=== PATIENT | male | born 1995 | race African-American/Black ===

== ENCOUNTER 2017-09-30 13:28 | Emergency (ER) | payer MEDICAID ==
[~2017-09-30] VITALS: Ht 182.9 cm; Wt 79.0 kg
[~2017-09-30 13:28] MED LIST: HYDR-3580 PO; Z.0.NO CURRENT MEDS
[2017-09-30 13:31] VITALS: BP 141/72; PULSE 93; RESP 16; TEMP 99; O2SAT 100
[2017-09-30] MEDS ORDERED: LIDOCAINE VISCOUS 2% SOLN 15 ML UDC SWISH-SWAL STA (14:12)
[2017-09-30] MEDS ORDERED: AMOXICILLIN (TRIHYDRATE) 500 MG CAP PO ONE (14:15)
[2017-09-30] MEDS ORDERED: ALUMINUM/MAGNESIUM/SIMETH 30 ML CUP PO ONE (14:15)
[2017-09-30] MEDS ORDERED: MAGICPED SWISH-SWAL (14:16)
[2017-09-30] MEDS ORDERED: AMOX500T PO (14:16)
--- NOTE | 2017-09-30 14:16 | PD ---
HPI Chief Complaint: ENT Complaint Time Seen by Provider: 14:12 Travel History International Travel<30 days: No Contact w/Intl Traveler<30days: No Traveled to known affect area: No History of Present Illness HPI 22-year-old male presents to emergency department complaining of a sore throat for 3-4 days. Patient says he had a friend come from [place] but the same issues and believes that she may have given this problem. Patient states that he thinks it has strep throat. Says that his pain is moderate to severe and is having trouble swallowing his pain. Patient denies drooling or hot potato voice. Patient denies cough or rhinorrhea. States he has anterior cervical tenderness with enlarged lymph nodes. Denies headache. States he has felt feverish for the last couple of days. Denies chronic medical issues or chronic medication use. PFSH Past Medical History ADD: Yes ADHD: Yes Cardiovascular Problems: Yes (HEART MURMUR PER MOTHER) Diminished Hearing: No Immunizations Current: Yes Social History Alcohol Use: No Tobacco Use: No Substance Use: No Allergies-Medications (Allergen,Severity, Reaction): Coded Allergies: No Known Allergies (Verified Adverse Reaction, Unknown, 09/30/17) Reported Meds & Prescriptions Reported Meds & Active Scripts Active Amoxicillin 500 Mg Tab 500 Mg PO BID 10 Days Magic Mouthwash Pediatric/Adult Liq (Lidocaine/Diphenhydr/Alum/Mg/Simeth) 60 Ml Susp 5 Ml SWISH-SWAL ACHS Each 5mL contains: Diphenydramine 4.5mg, Viscous Lidocaine 2% 10mg, Maalox Advanced Regular Strength 2.7ml Review of Systems Except as stated in HPI: all other systems reviewed are Neg Physical Exam Narrative GENERAL: Well-nourished, well-developed patient. SKIN: Focused skin assessment warm/dry. HEAD: Normocephalic. EYES: No scleral icterus. No injection or drainage. NECK: Supple, trachea midline. No JVD. Bilateral anterior cervical lymphadenopathy THROAT: Pharyngeal injection, exudates, and tonsillar hypertrophy. Airway is patent. CARDIOVASCULAR: Regular rate and rhythm without murmurs, gallops, or rubs. RESPIRATORY: Breath sounds equal bilaterally. No accessory muscle use. MUSCULOSKELETAL: No cyanosis, or edema. BACK: Nontender without obvious deformity. No CVA tenderness. Data Data Last Documented VS Vital Signs Date Time Temp Pulse Resp B/P (MAP) Pulse Ox O2 Delivery O2 Flow Rate FiO2 09/30/17 13:31 99.0 93 16 141/72 (95) 100 Orders Orders Amoxicillin (Trimox) (09/30/17 14:15) Lidocaine 2% Viscous (Xylocaine 2% Visco (09/30/17 14:12) Al-Mag Hy-Si 40-40-4 Mg/Ml Liq (Mag-Al P (09/30/17 14:15) Ed Discharge Order (09/30/17 14:16) MDM Medical Decision Making Medical Screen Exam Complete: Yes Emergency Medical Condition: Yes Differential Diagnosis Strep pharyngitis, viral pharyngitis, allergic pharyngitis Narrative Course 22-year-old male presents to emergency department complaining of a sore throat for 3-4 days. Patient says he had a friend come from [place] but the same issues and believes that she may have given this problem. Patient states that he thinks it has strep throat. Says that his pain is moderate to severe and is having trouble swallowing his pain. Patient denies drooling or hot potato voice. Patient denies cough or rhinorrhea. States he has anterior cervical tenderness with enlarged lymph nodes. Denies headache. States he has felt feverish for the last couple of days. Denies chronic medical issues or chronic medication use. Vital signs stable. Centor criteria met for treatment of strep pharyngitis. Patient was treated with amoxicillin and Maalox with lidocaine for symptom relief. Patient advised to take amoxicillin as prescribed. Follow-up with his primary care physician within 2 days. Follow-up emergency department for worsening or persistent symptoms. Diagnosis Primary Impression: Strep pharyngitis Referrals: Primary Care Physician Additional Instructions: Follow up with your primary care physician within 2-3 days. If your symptoms persist or worsen, return to the emergency department. Continue salt water gargles Take medication as prescribed. Scripts Amoxicillin (Amoxicillin) 500 Mg Tab 500 MG PO BID for Infection for 10 Days, #20 TAB 0 Refills Prov: Ashleigh Velasquez 09/30/17 Pitdisljahgawkh-Ofzijzban-Una-Alum-Simeth Liq (Magic Mouthwash Pediatric/Adult Liq) 60 Ml Susp 5 ML SWISH-SWAL ACHS for Mouth sores, #60 ML 0 Refills Each 5mL contains: Diphenydramine 4.5mg, Viscous Lidocaine 2% 10mg, Maalox Advanced Regular Strength 2.7ml Prov: Ashleigh Velasquez 09/30/17 Disposition: 01 DISCHARGE HOME Condition: Stable Ashleigh Velasquez Sep 30, 2017 14:16
== END 2017-09-30 14:30 | disposition home or self-care (01) ==
LOC: PHEFT 13:28
DX: J02.0 Streptococcal pharyngitis (principal); F90.9 Attention-deficit hyperactivity disorder, unspecified type
CPT/HCPCS: 99284